=== PATIENT | female | born 1980 ===

== ENCOUNTER 2017-07-01 21:51 | Emergency (ER) | payer OTHER, BC ==
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
[2017-07-01 23:35] VITALS: BP 129/87; PULSE 73; RESP 16; TEMP 98; O2SAT 99
--- NOTE | 2017-07-02 08:38 | RAD ---
PROCEDURE: Radiographs of the Lumbar Spine. HISTORY: injury COMPARISON: None available. FINDINGS: Coned-down lateral view, nondiagnostic. BONES: Alignment appears satisfactory. No listhesis. No acute displaced fracture identified. DISC SPACES: Unremarkable. OTHER FINDINGS: Numerous surgical clips object over the mid abdomen. Suture material within the left abdomen. IMPRESSION: No acute displaced fracture or subluxation identified.
--- NOTE | 2017-07-02 08:40 | RAD ---
PROCEDURE: Cervical Spine Radiographs. HISTORY: Pain. COMPARISON: None available. FINDINGS: BONES: Straightening of the normal cervical lordosis may be related to muscle spasm or positioning. No acute displaced fracture identified No acute displaced fracture identified. Dens tip obscured. DISC SPACES: Unremarkable. SOFT TISSUES: Unremarkable. No prevertebral soft tissue swelling. OTHER FINDINGS: None. IMPRESSION: Straightening of the normal cervical lordosis may be related to muscle spasm or positioning.
== END 2017-07-02 00:16 | disposition home or self-care (01) ==
LOC: C.ER 21:51
DX: S33.5XXA Sprain of ligaments of lumbar spine, initial encounter (principal); S16.1XXA Strain of muscle, fascia and tendon at neck level, initial encounter; V43.52XA Car driver injured in collision with other type car in traffic accident, initial encounter; Y92.410 Unspecified street and highway as the place of occurrence of the external cause

== ENCOUNTER 2017-07-08 16:16 | Emergency (ER) | payer OTHER, BC ==
[2017-07-08 16:44] VITALS: O2SAT 100; BMI 25.7
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
[2017-07-08] MEDS ORDERED: Lidocaine 5% Patch TD STA (17:10)
[2017-07-08] MEDS ORDERED: Lidocaine 5% Patch TD ONE (17:33)
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
[2017-07-08 18:08] VITALS: BP 134/85; PULSE 56; RESP 14; TEMP 97.9
== END 2017-07-08 18:26 | disposition home or self-care (01) ==
LOC: C.ER 16:16
DX: S16.1XXD Strain of muscle, fascia and tendon at neck level, subsequent encounter (principal); W22.09XD Striking against other stationary object, subsequent encounter